=== PATIENT | female | born 1960 | race Caucasian/White ===

== ENCOUNTER 2016-06-18 10:37 | Emergency (ER) | payer OTHER ==
[~2016-06-18] VITALS: Ht 177.8 cm; Wt 86.5 kg
[2016-06-18 12:03] LABS: HEMATOCRIT 35.8 % (36.0-46.0); MCH 29.2 PG (29.0-34.0); MCHC 34.4 G/DL (30.0-36.0); MEAN PLAT.VOLUME 11.5 uM^3 (9.5-12.4); PLATELET COUNT 280 K/uL (156-360); RBC DIS.WIDTH-SD 39.4 % (39-53); RED BLOOD COUNT 4.21 M/uL (3.80-5.20); WHITE BLOOD COUNT 8.4 K/uL (4.1-10.2)
[2016-06-18 12:15] LABS: CHLORIDE 106 mEq/L (99-109); POTASSIUM 3.8 mEq/L (3.7-5.4); SODIUM 141 mEq/L (136-147)
[2016-06-18 12:16] LABS: GLUCOSE 102 mg/dL (70-99)
[2016-06-18 12:18] LABS: ANION GAP 9 MEQ/L (2-14)
[2016-06-18 12:20] LABS: GFR ESTIMATE (CALCULATED) > 59 mL/min/
[2016-06-18 12:21] LABS: UREA NITROGEN (BUN) 16 mg/dL (9-23)
[2016-06-18 12:25] LABS: TROP-I INTERPRETATION NEGATIVE; TROPONIN-I < 0.01 ng/mL (0.0-0.30)
[2016-06-18 14:17] LABS: TROP-I INTERPRETATION NEGATIVE; TROPONIN-I < 0.01 ng/mL (0.0-0.30)
[2016-06-18 14:30] VITALS: BP 140/79
== END 2016-06-18 14:48 | disposition home or self-care (01) ==
LOC: EME 10:37
PROVIDERS: Emergency Medicine
DX: R07.89 Other chest pain (principal); R68.84 Jaw pain; R20.2 Paresthesia of skin; Z73.3 Stress, not elsewhere classified; Z87.891 Personal history of nicotine dependence
CPT/HCPCS: 71020; 80048; 84484; 85027; 93005; 99281; 99284